=== PATIENT | male | born 1960 | race Hispanic/Latino ===

== ENCOUNTER 2022-12-18 09:32 | Inpatient (IN) | payer MEDICARE ==
[~2022-12-18] VITALS: Ht 172.7 cm; Wt 102.1 kg
[2022-12-18] MEDS ORDERED: Vancomycin IV 1 GM in SODIUM CHLORIDE 0.9% 250ML 250 ML IV ONE (11:30)
[2022-12-18] MEDS ORDERED: Vancomycin IV 1 GM VIAL ONE (11:37)
[2022-12-18] MEDS ORDERED: SODIUM CHLORIDE 0.9% 250ML 250 ML ONE (11:37)
[2022-12-18] MEDS ORDERED: CARVEDILOL12.5 MG PO (16:08)
[2022-12-18] MEDS ORDERED: DOCUSATE SODIU100 MG PO (16:08)
[2022-12-18] MEDS ORDERED: PERCOCET 10-321 EACH PO (16:08)
[2022-12-18] MEDS ORDERED: LOSARTAN POTAS100 MG PO (16:08)
[2022-12-18] MEDS ORDERED: BUSPIRONE HCL10 MG PO (16:08)
[2022-12-18] MEDS ORDERED: NYSTATIN-TRIAMC15 GM TOP (16:08)
[2022-12-18] MEDS ORDERED: AMITRIPTYLINE H50 MG PO (16:08)
[2022-12-18] MEDS ORDERED: ASPIRIN81 MG PO (16:08)
[2022-12-18] MEDS ORDERED: GLYBURIDE5 MG PO (16:08)
[2022-12-18] MEDS ORDERED: METFORMIN HCL850 MG PO (16:08)
[2022-12-18] MEDS ORDERED: HYDROCHLOROTHIA25 MG PO (16:08)
[2022-12-18] MEDS ORDERED: NITROGLYCERIN0.4 MG SL (16:08)
[2022-12-18] MEDS ORDERED: ATORVASTATIN CA20 MG PO (16:08)
[2022-12-18 16:34] VITALS: BP 139/73; PULSE 68; RESP 18; TEMP 97.2; O2SAT 100
[2022-12-18 16:38] VITALS: BP 152/81; PULSE 77; RESP 18; TEMP 98.4; O2SAT 98
[2022-12-18 16:46] VITALS: BP 152/81; PULSE 77; RESP 18; TEMP 98.4; O2SAT 98
[2022-12-18] MEDS ORDERED: NON-FORMULARY MEDICATION (Oxycodone Hcl/Acetaminophen (Percocet 10-325 Mg Tablet) 1 TAB) PO PRN (17:00)
[2022-12-18] MEDS ORDERED: NITROGLYCERIN 0.4 MG SUBL SL PRN (17:00)
[2022-12-18] MEDS ORDERED: DOCUSATE SODIUM 100 MG CAP PO PRN (17:00)
[2022-12-18] MEDS ORDERED: ENOXAPARIN SOD INJ 40 MG/0.4 ML SYR SC SCH (17:00)
[2022-12-18] MEDS ORDERED: DEXTROSE 50% SYRINGE 50 ML IV PRN (17:00)
[2022-12-18] MEDS ORDERED: NYSTATIN/TRIAMCINOLONE 15 GM CR TOP PRN (17:00)
[2022-12-18] MEDS: SODIUM CHLORIDE 0.9% 1000ML 1,000 ML IV SCH ×2 (17:51→19:30)
[2022-12-18] MEDS: LACTOBACILLUS ACIDOPHILUS CAPSULE PO SCH (17:51)
[2022-12-18] MEDS: CARVEDILOL 12.5 MG TAB PO SCH (17:52)
[2022-12-18] MEDS: HYDROCODONE/APAP 10MG-325MG TAB PO SCH ×2 (17:52→23:03)
[2022-12-18] MEDS: NICOTINE 21 MG/EA PATCH TOP SCH (17:53)
[2022-12-18] MEDS: ENOXAPARIN SOD INJ 40 MG/0.4 ML SYR SC SCH (17:53)
[2022-12-18] MEDS: GLYBURIDE 5 MG TAB PO SCH (18:38)
[2022-12-18 20:00] VITALS: BP 137/83; PULSE 86; RESP 18; TEMP 98.7; O2SAT 100
[2022-12-18 20:05] VITALS: BP 137/83; PULSE 86; RESP 18; TEMP 98.7; O2SAT 100
[2022-12-18] MEDS: AMITRIPTYLINE HCL 25 MG TAB PO SCH (20:54)
[2022-12-18] MEDS: ATORVASTATIN 20 MG TAB PO SCH (20:54)
[2022-12-18] MEDS: LOSARTAN POTASSIUM 100 MG TAB PO SCH (20:55)
[2022-12-18] MEDS: INSULIN LISPRO 100 UNIT/1 ML 3ML VIAL SQ SCH (20:59)
[2022-12-19 00:39] VITALS: BP 119/69; PULSE 81; RESP 20; TEMP 98.5; O2SAT 98
[2022-12-19] MEDS: SODIUM CHLORIDE 0.9% 1000ML 1,000 ML IV SCH ×2 (03:50→11:25)
[2022-12-19 04:50] VITALS: BP 102/57; PULSE 58; TEMP 97.6
[2022-12-19] MEDS: HYDROCODONE/APAP 10MG-325MG TAB PO SCH ×3 (05:19→17:38)
[2022-12-19 06:46] LABS: BASOPHILS # (AUTO) 0.1 (0.0-0.1); BASOPHILS % 0.7 % (0.0-1.0); EOSINOPHILS # (AUTO) 0.3 (0.0-0.4); EOSINOPHILS % 4.9 % (0.0-6.0); HEMATOCRIT 38.8 % (38.2-49.6); HEMOGLOBIN 13.3 g/dL (14.0-18.0); LYMPHOCYTES # (AUTO) 2.3 (1.0-3.2); LYMPHOCYTES % 33.4 % (18.0-39.1); MEAN CORPUSCULAR HEMOGLOBIN 31.2 pg (28-32); MEAN CORPUSCULAR HGB CONC 34.3 g/dL (31-35); MEAN CORPUSCULAR VOLUME 91.1 fL (81-99); MONOCYTES # (AUTO) 0.5 (0.2-0.8); NEUTROPHILS # (AUTO) 3.8 (2.1-6.9); NEUTROPHILS % 53.9 % (38.7-80.0); PLATELET COUNT 133 x10e3/uL (140-360); RED BLOOD COUNT 4.26 x10e6/uL (4.3-5.7); RED CELL DISTRIBUTION WIDTH 12.4 % (11.7-14.4)
[2022-12-19 07:17] LABS: ALBUMIN 3.3 g/dL (3.5-5.0); ALBUMIN/GLOBULIN RATIO 1.1 (0.8-2.0); ANION GAP 10.7 mmol/L (8-16); CALCIUM 8.6 mg/dL (8.4-10.2); CREATININE, SERUM 0.86 mg/dL (0.72-1.25); POTASSIUM 3.7 mmol/L (3.5-5.1)
[2022-12-19 08:19] VITALS: BP 133/86; PULSE 61; RESP 20; TEMP 97.9; O2SAT 100
[2022-12-19] MEDS: ERGOCALCIFEROL 50,000 UNIT CAP PO SCH (09:00)
[2022-12-19] MEDS: NICOTINE 21 MG/EA PATCH TOP SCH (09:33)
[2022-12-19] MEDS: HYDROCHLOROTHIAZIDE 25 MG TAB PO SCH (09:34)
[2022-12-19] MEDS: METFORMIN HCL 850 MG TAB PO SCH (09:34)
[2022-12-19] MEDS: BUSPIRONE HCL 10 MG TABLET PO SCH (09:34)
[2022-12-19] MEDS: LACTOBACILLUS ACIDOPHILUS CAPSULE PO SCH ×2 (09:34→17:36)
[2022-12-19] MEDS: ASPIRIN 81 MG CHEW TAB PO SCH (09:35)
[2022-12-19] MEDS: CARVEDILOL 12.5 MG TAB PO SCH ×2 (09:35→17:37)
[2022-12-19] MEDS: INSULIN LISPRO 100 UNIT/1 ML 3ML VIAL SQ SCH ×4 (09:56→21:00)
[2022-12-19] MEDS: GLYBURIDE 5 MG TAB PO SCH ×2 (10:59→17:36)
[2022-12-19] MEDS: CEFTRIAXONE 2 GM in SODIUM CHLORIDE 0.9% 100 ML IV SCH (13:37)
[2022-12-19] MEDS: Vancomycin IV 1 GM in SODIUM CHLORIDE 0.9% 250ML 250 ML IV SCH (13:39)
[2022-12-19 15:40] VITALS: BP 124/84; PULSE 68; RESP 20; TEMP 97.6; O2SAT 100
[2022-12-19] MEDS: ENOXAPARIN SOD INJ 40 MG/0.4 ML SYR SC SCH (17:36)
[2022-12-19 20:00] VITALS: BP 134/80; PULSE 71; RESP 17; TEMP 97.6; O2SAT 100
[2022-12-19] MEDS: AMITRIPTYLINE HCL 25 MG TAB PO SCH (21:42)
[2022-12-19] MEDS: ATORVASTATIN 20 MG TAB PO SCH (21:42)
[2022-12-19] MEDS: LOSARTAN POTASSIUM 100 MG TAB PO SCH (21:43)
[2022-12-19] MEDS: HYDROCODONE/APAP 10MG-325MG TAB PO PRN (21:45)
[2022-12-20] VITALS (8 sets, daily range): BP systolic 118–139; BP diastolic 80–94; PULSE 68–80; RESP 16–19; TEMP 97.5–98.4; O2SAT 100
[2022-12-20] MEDS: HYDROCODONE/APAP 10MG-325MG TAB PO PRN ×5 (02:42→21:54)
[2022-12-20] MEDS: SODIUM CHLORIDE 0.9% 1000ML 1,000 ML IV SCH ×4 (02:43→21:27)
[2022-12-20] MEDS: Vancomycin IV 1 GM in SODIUM CHLORIDE 0.9% 250ML 250 ML IV SCH ×2 (02:44→13:30)
[2022-12-20] MEDS: INSULIN LISPRO 100 UNIT/1 ML 3ML VIAL SQ SCH ×4 (07:30→21:34)
[2022-12-20] MEDS: GLYBURIDE 5 MG TAB PO SCH ×2 (09:04→17:55)
[2022-12-20] MEDS: BUSPIRONE HCL 10 MG TABLET PO SCH (09:04)
[2022-12-20] MEDS: HYDROCHLOROTHIAZIDE 25 MG TAB PO SCH (09:05)
[2022-12-20] MEDS: ASPIRIN 81 MG CHEW TAB PO SCH (09:05)
[2022-12-20] MEDS: LACTOBACILLUS ACIDOPHILUS CAPSULE PO SCH ×2 (09:05→17:55)
[2022-12-20] MEDS: METFORMIN HCL 850 MG TAB PO SCH (09:05)
[2022-12-20] MEDS: CEFTRIAXONE 2 GM in SODIUM CHLORIDE 0.9% 100 ML IV SCH (09:06)
[2022-12-20] MEDS: CARVEDILOL 12.5 MG TAB PO SCH ×2 (09:06→17:56)
[2022-12-20] MEDS: NICOTINE 21 MG/EA PATCH TOP SCH (09:07)
[2022-12-20] MEDS: ENOXAPARIN SOD INJ 40 MG/0.4 ML SYR SC SCH (17:56)
[2022-12-20] MEDS: MUPIROCIN 2% OINT 22 GM TUBE TOP SCH (17:57)
[2022-12-20] MEDS ORDERED: POVIDONE IODINE 10% 120 ML BTL EXT PRN (21:00)
[2022-12-20] MEDS: LOSARTAN POTASSIUM 100 MG TAB PO SCH (21:28)
[2022-12-20] MEDS: ATORVASTATIN 20 MG TAB PO SCH (21:28)
[2022-12-20] MEDS: AMITRIPTYLINE HCL 25 MG TAB PO SCH (21:28)
[2022-12-21] VITALS (9 sets, daily range): BP systolic 126–159; BP diastolic 75–94; PULSE 59–81; RESP 17–21; TEMP 97.7–98.6; O2SAT 99–100
[2022-12-21] MEDS: Vancomycin IV 1 GM in SODIUM CHLORIDE 0.9% 250ML 250 ML IV SCH ×2 (02:16→13:32)
[2022-12-21] MEDS: HYDROCODONE/APAP 10MG-325MG TAB PO PRN ×4 (02:17→17:05)
[2022-12-21] MEDS: SODIUM CHLORIDE 0.9% 1000ML 1,000 ML IV SCH (05:39)
[2022-12-21 07:26] LABS: BASOPHILS % 1.1 % (0.0-1.0); EOSINOPHILS # (AUTO) 0.1 (0.0-0.4); HEMATOCRIT 21.9 % (38.2-49.6); HEMOGLOBIN 8.1 g/dL (14.0-18.0); LYMPHOCYTES # (AUTO) 1.5 (1.0-3.2); LYMPHOCYTES % 41.4 % (18.0-39.1); MONOCYTES # (AUTO) 0.2 (0.2-0.8); MONOCYTES % 6.3 % (4.4-11.3); NEUTROPHILS # (AUTO) 1.7 (2.1-6.9); NEUTROPHILS % 48.9 % (38.7-80.0); PLATELET COUNT 97 x10e3/uL (140-360); RED BLOOD COUNT 1.84 x10e6/uL (4.3-5.7); RED CELL DISTRIBUTION WIDTH 12.2 % (11.7-14.4)
[2022-12-21 07:44] LABS: ALBUMIN 3.7 g/dL (3.5-5.0); ALBUMIN/GLOBULIN RATIO 1.7 (0.8-2.0); ANION GAP 11.6 mmol/L (8-16); CALCIUM 8.8 mg/dL (8.4-10.2); CREATININE, SERUM 1.49 mg/dL (0.72-1.25); POTASSIUM 4.6 mmol/L (3.5-5.1)
[2022-12-21] MEDS: INSULIN LISPRO 100 UNIT/1 ML 3ML VIAL SQ SCH ×4 (08:00→21:19)
[2022-12-21] MEDS: GLYBURIDE 5 MG TAB PO SCH ×2 (08:30→17:06)
[2022-12-21] MEDS: METFORMIN HCL 850 MG TAB PO SCH (08:30)
[2022-12-21 09:07] LABS: FERRITIN 130.24 ng/mL (21.81-274.66)
[2022-12-21] MEDS: CEFTRIAXONE 2 GM in SODIUM CHLORIDE 0.9% 100 ML IV SCH (09:39)
[2022-12-21] MEDS: HYDROCHLOROTHIAZIDE 25 MG TAB PO SCH (09:40)
[2022-12-21] MEDS: BUSPIRONE HCL 10 MG TABLET PO SCH (09:40)
[2022-12-21] MEDS: LACTOBACILLUS ACIDOPHILUS CAPSULE PO SCH ×2 (09:40→17:06)
[2022-12-21] MEDS: ASPIRIN 81 MG CHEW TAB PO SCH (09:40)
[2022-12-21] MEDS: CARVEDILOL 12.5 MG TAB PO SCH ×2 (09:41→17:06)
[2022-12-21] MEDS: NICOTINE 21 MG/EA PATCH TOP SCH (09:42)
[2022-12-21] MEDS: MUPIROCIN 2% OINT 22 GM TUBE TOP SCH (09:43)
[2022-12-21 09:56] LABS: PLATELET ESTIMATE SLIGHTLY DECREASED; PLATELET MORPHOLOGY COMMENT NORMAL; RBC MORPHOLOGY COMMENT NORMAL
[2022-12-21] MEDS: ENOXAPARIN SOD INJ 40 MG/0.4 ML SYR SC SCH (17:06)
[2022-12-21] MEDS: ATORVASTATIN 20 MG TAB PO SCH (21:11)
[2022-12-21] MEDS: AMITRIPTYLINE HCL 25 MG TAB PO SCH (21:11)
[2022-12-21] MEDS: LOSARTAN POTASSIUM 100 MG TAB PO SCH (21:12)
[2022-12-21] MEDS: Morphine 4mg INJECTION 4 MG/ML INJ IV PRN (21:13)
[2022-12-22] VITALS (13 sets, daily range): BP systolic 140–161; BP diastolic 85–97; PULSE 65–87; RESP 12–20; TEMP 97.8–98.8; O2SAT 99–100
[2022-12-22] MEDS: Morphine 4mg INJECTION 4 MG/ML INJ IV PRN ×4 (02:46→20:08)
[2022-12-22] MEDS: Vancomycin IV 1 GM in SODIUM CHLORIDE 0.9% 250ML 250 ML IV SCH ×2 (02:49→16:16)
[2022-12-22 06:27] LABS: ANION GAP 13.8 mmol/L (8-16); CALCIUM 9.1 mg/dL (8.4-10.2); CREATININE, SERUM 0.83 mg/dL (0.72-1.25); POTASSIUM 3.8 mmol/L (3.5-5.1)
[2022-12-22 06:51] LABS: CHOL/HDL RATIO 3.3 (3.9-4.7)
[2022-12-22 06:52] LABS: BASOPHILS % 0.5 % (0.0-1.0); EOSINOPHILS # (AUTO) 0.3 (0.0-0.4); LYMPHOCYTES # (AUTO) 1.9 (1.0-3.2); LYMPHOCYTES % 28.9 % (18.0-39.1); MEAN CORPUSCULAR HEMOGLOBIN 31.3 pg (28-32); MEAN CORPUSCULAR HGB CONC 34.6 g/dL (31-35); MONOCYTES # (AUTO) 0.5 (0.2-0.8); MONOCYTES % 7.4 % (4.4-11.3); NEUTROPHILS # (AUTO) 3.8 (2.1-6.9); NEUTROPHILS % 58.9 % (38.7-80.0); PLATELET COUNT 129 x10e3/uL (140-360); RED CELL DISTRIBUTION WIDTH 12.3 % (11.7-14.4)
[2022-12-22 06:54] LABS: HEMOGLOBIN 13.5 g/dL (14.0-18.0); MEAN CORPUSCULAR VOLUME 90.5 fL (81-99); RED BLOOD COUNT 4.31 x10e6/uL (4.3-5.7)
[2022-12-22] MEDS: INSULIN LISPRO 100 UNIT/1 ML 3ML VIAL SQ SCH ×4 (07:30→20:13)
[2022-12-22] MEDS: LACTOBACILLUS ACIDOPHILUS CAPSULE PO SCH ×2 (07:37→16:25)
[2022-12-22] MEDS: GLYBURIDE 5 MG TAB PO SCH ×2 (07:37→16:26)
[2022-12-22] MEDS: METFORMIN HCL 850 MG TAB PO SCH (07:37)
[2022-12-22] MEDS: ASPIRIN 81 MG CHEW TAB PO SCH (07:39)
[2022-12-22] MEDS: BUSPIRONE HCL 10 MG TABLET PO SCH (07:39)
[2022-12-22] MEDS: HYDROCHLOROTHIAZIDE 25 MG TAB PO SCH (09:00)
[2022-12-22] MEDS: CARVEDILOL 12.5 MG TAB PO SCH ×2 (09:00→16:25)
[2022-12-22] MEDS: CEFTRIAXONE 2 GM in SODIUM CHLORIDE 0.9% 100 ML IV SCH (09:19)
[2022-12-22] MEDS: MUPIROCIN 2% OINT 22 GM TUBE TOP SCH (09:19)
[2022-12-22] MEDS: NICOTINE 21 MG/EA PATCH TOP SCH (09:19)
[2022-12-22] MEDS ORDERED: NITROGLYCERIN/D5W 200 MCG/ML 250 ML ONE (10:07)
[2022-12-22] MEDS ORDERED: HEPARIN SOD/SOD CHLORIDE 2,000 ML ONE (10:07)
[2022-12-22] MEDS ORDERED: HEPARIN SOD (PORCINE) 1000 UNIT/ML 30ML ONE (10:07)
[2022-12-22] MEDS ORDERED: LIDOCAINE HCL 2% LOCAL 20 ML VIAL ONE (10:07)
[2022-12-22] MEDS ORDERED: SODIUM CHLORIDE 0.9% 1000ML 2,000 ML ONE (10:07)
[2022-12-22] MEDS ORDERED: IOPAMIDOL 370 MG/ML 100 ML INFUS..BTL INJ ONE (10:07)
[2022-12-22] MEDS ORDERED: MIDAZOLAM HCL 2 MG/2 ML VIAL ONE ×2 (10:08→11:05)
[2022-12-22] MEDS ORDERED: FENTANYL CITRATE/PF 100MCG/2 ML INJ ONE (10:08)
[2022-12-22] MEDS ORDERED: VERAPAMIL HCL 2.5 MG/ML 2 ML VIAL ONE (10:08)
[2022-12-22] MEDS ORDERED: SODIUM CHLORIDE 0.9% 250ML 250 ML ONE (10:54)
[2022-12-22] MEDS ORDERED: Vancomycin IV 1 GM VIAL ONE (10:54)
[2022-12-22] MEDS ORDERED: CLOPIDOGREL BISULFATE 75 MG TAB ONE (11:29)
[2022-12-22] MEDS ORDERED: ASPIRIN 325 MG TAB ONE (11:30)
[2022-12-22] MEDS: ENOXAPARIN SOD INJ 40 MG/0.4 ML SYR SC SCH (16:35)
[2022-12-22] MEDS: AMITRIPTYLINE HCL 25 MG TAB PO SCH (20:09)
[2022-12-22] MEDS: ATORVASTATIN 20 MG TAB PO SCH (20:09)
[2022-12-22] MEDS: LOSARTAN POTASSIUM 100 MG TAB PO SCH (20:13)
[2022-12-23] VITALS (8 sets, daily range): BP systolic 109–132; BP diastolic 63–90; PULSE 53–85; RESP 17–20; TEMP 97.9–98.9; O2SAT 100
[2022-12-23] MEDS: Morphine 4mg INJECTION 4 MG/ML INJ IV PRN ×2 (00:36→22:32)
[2022-12-23] MEDS: Vancomycin IV 1 GM in SODIUM CHLORIDE 0.9% 250ML 250 ML IV SCH ×2 (02:34→13:02)
[2022-12-23] MEDS: INSULIN LISPRO 100 UNIT/1 ML 3ML VIAL SQ SCH ×4 (07:30→22:34)
[2022-12-23] MEDS: HYDROCODONE/APAP 10MG-325MG TAB PO PRN ×4 (07:44→21:03)
[2022-12-23] MEDS: GLYBURIDE 5 MG TAB PO SCH ×2 (08:48→16:41)
[2022-12-23] MEDS: METFORMIN HCL 850 MG TAB PO SCH (08:48)
[2022-12-23] MEDS: LACTOBACILLUS ACIDOPHILUS CAPSULE PO SCH ×2 (08:48→16:41)
[2022-12-23] MEDS: ASPIRIN 81 MG CHEW TAB PO SCH (08:48)
[2022-12-23] MEDS: HYDROCHLOROTHIAZIDE 25 MG TAB PO SCH (08:49)
[2022-12-23] MEDS: CARVEDILOL 12.5 MG TAB PO SCH ×2 (08:49→16:42)
[2022-12-23] MEDS: BUSPIRONE HCL 10 MG TABLET PO SCH (08:49)
[2022-12-23] MEDS: NICOTINE 21 MG/EA PATCH TOP SCH (08:50)
[2022-12-23] MEDS: CEFTRIAXONE 2 GM in SODIUM CHLORIDE 0.9% 100 ML IV SCH (08:50)
[2022-12-23] MEDS: ENOXAPARIN SOD INJ 40 MG/0.4 ML SYR SC SCH (16:41)
[2022-12-23] MEDS: AMITRIPTYLINE HCL 25 MG TAB PO SCH (21:02)
[2022-12-23] MEDS: LOSARTAN POTASSIUM 100 MG TAB PO SCH (21:02)
[2022-12-23] MEDS: ATORVASTATIN 20 MG TAB PO SCH (21:03)
[2022-12-23] MEDS: MUPIROCIN 2% OINT 22 GM TUBE TOP SCH (22:33)
[2022-12-24] VITALS (8 sets, daily range): BP systolic 110–139; BP diastolic 63–84; PULSE 65–74; RESP 17–20; TEMP 97.4–98.2; O2SAT 97–100
[2022-12-24] MEDS: Vancomycin IV 1 GM in SODIUM CHLORIDE 0.9% 250ML 250 ML IV SCH ×2 (02:08→15:00)
[2022-12-24] MEDS: Morphine 4mg INJECTION 4 MG/ML INJ IV PRN ×4 (02:44→22:02)
[2022-12-24] MEDS: HYDROCODONE/APAP 10MG-325MG TAB PO PRN ×2 (05:03→09:22)
[2022-12-24] MEDS: INSULIN LISPRO 100 UNIT/1 ML 3ML VIAL SQ SCH ×4 (07:30→20:38)
[2022-12-24] MEDS: GLYBURIDE 5 MG TAB PO SCH ×2 (08:51→16:37)
[2022-12-24] MEDS: METFORMIN HCL 850 MG TAB PO SCH (08:51)
[2022-12-24] MEDS: HYDROCHLOROTHIAZIDE 25 MG TAB PO SCH (09:22)
[2022-12-24] MEDS: LACTOBACILLUS ACIDOPHILUS CAPSULE PO SCH ×2 (09:22→16:37)
[2022-12-24] MEDS: ASPIRIN 81 MG CHEW TAB PO SCH (09:22)
[2022-12-24] MEDS: CEFTRIAXONE 2 GM in SODIUM CHLORIDE 0.9% 100 ML IV SCH (09:23)
[2022-12-24] MEDS: CARVEDILOL 12.5 MG TAB PO SCH ×2 (09:23→16:38)
[2022-12-24] MEDS: NICOTINE 21 MG/EA PATCH TOP SCH (09:24)
[2022-12-24] MEDS: BUSPIRONE HCL 10 MG TABLET PO SCH (09:24)
[2022-12-24] MEDS: ENOXAPARIN SOD INJ 40 MG/0.4 ML SYR SC SCH (16:38)
[2022-12-24] MEDS: LOSARTAN POTASSIUM 100 MG TAB PO SCH (21:42)
[2022-12-24] MEDS: ATORVASTATIN 20 MG TAB PO SCH (21:42)
[2022-12-24] MEDS: MUPIROCIN 2% OINT 22 GM TUBE TOP SCH (21:42)
[2022-12-24] MEDS: AMITRIPTYLINE HCL 25 MG TAB PO SCH (21:42)
[2022-12-25] VITALS (8 sets, daily range): BP systolic 113–135; BP diastolic 74–85; PULSE 68–77; RESP 18–20; TEMP 97.8–98.3; O2SAT 98–100
[2022-12-25] MEDS: Vancomycin IV 1 GM in SODIUM CHLORIDE 0.9% 250ML 250 ML IV SCH ×2 (03:00→13:02)
[2022-12-25] MEDS: Morphine 4mg INJECTION 4 MG/ML INJ IV PRN ×5 (03:30→22:58)
[2022-12-25] MEDS: INSULIN LISPRO 100 UNIT/1 ML 3ML VIAL SQ SCH ×4 (07:30→21:58)
[2022-12-25] MEDS: METFORMIN HCL 850 MG TAB PO SCH (08:00)
[2022-12-25] MEDS: GLYBURIDE 5 MG TAB PO SCH ×2 (08:00→17:14)
[2022-12-25] MEDS ORDERED: BUPIVACAINE HCL 0.5% INJ 30 ML VIAL INJ ONE (08:07)
[2022-12-25] MEDS ORDERED: DEXAMETHASONE SOD PHOS INJ 4 MG/ML SDV ONE (08:07)
[2022-12-25] MEDS ORDERED: NEOSTIGMINE 1 MG/ML 10ML VIAL ONE (08:07)
[2022-12-25] MEDS: LACTOBACILLUS ACIDOPHILUS CAPSULE PO SCH ×2 (08:12→17:14)
[2022-12-25] MEDS ORDERED: ACETAMINOPHEN 1000 MG/100 ML 100 ML IV ONE (08:27)
[2022-12-25] MEDS ORDERED: CEFTRIAXONE 1 GM VIAL ONE (08:30)
[2022-12-25] MEDS: CEFTRIAXONE 2 GM in SODIUM CHLORIDE 0.9% 100 ML IV SCH (09:00)
[2022-12-25] MEDS: BUSPIRONE HCL 10 MG TABLET PO SCH (09:00)
[2022-12-25] MEDS: NICOTINE 21 MG/EA PATCH TOP SCH (09:00)
[2022-12-25] MEDS: ASPIRIN 81 MG CHEW TAB PO SCH (10:56)
[2022-12-25] MEDS: CARVEDILOL 12.5 MG TAB PO SCH ×2 (10:57→17:15)
[2022-12-25] MEDS: HYDROCHLOROTHIAZIDE 25 MG TAB PO SCH (10:58)
[2022-12-25] MEDS ORDERED: LIDOCAINE HCL 2% LOCAL INJ 5 ML SDV VIAL INJ ONE (13:16)
[2022-12-25] MEDS ORDERED: POVIDONE IODINE 0.05% 0.05 % ML PO ONE (13:16)
[2022-12-25] MEDS ORDERED: SEVOFLURANE INHAL SOLN 250 ML PEN BTL ONE (13:16)
[2022-12-25] MEDS ORDERED: ONDANSETRON HCL INJ 2MG/ML 2ML 2 MG/ML VIAL ONE (13:16)
[2022-12-25] MEDS ORDERED: ETOMIDATE 2 MG/ML 10 ML INJ IV ONE (13:16)
[2022-12-25] MEDS ORDERED: FENTANYL CITRATE/PF 100MCG/2 ML INJ ONE (14:06)
[2022-12-25] MEDS: MUPIROCIN 2% OINT 22 GM TUBE TOP SCH (21:00)
[2022-12-25] MEDS: ATORVASTATIN 20 MG TAB PO SCH (21:53)
[2022-12-25] MEDS: LOSARTAN POTASSIUM 100 MG TAB PO SCH (21:53)
[2022-12-25] MEDS: AMITRIPTYLINE HCL 25 MG TAB PO SCH (21:53)
[2022-12-26] VITALS (7 sets, daily range): BP systolic 128–150; BP diastolic 78–91; PULSE 72–94; RESP 14–18; TEMP 98–98.6; O2SAT 99–100
[2022-12-26] MEDS: Vancomycin IV 1 GM in SODIUM CHLORIDE 0.9% 250ML 250 ML IV SCH ×3 (03:18→13:01)
[2022-12-26] MEDS: Morphine 4mg INJECTION 4 MG/ML INJ IV PRN ×5 (03:18→21:28)
[2022-12-26] MEDS: GLYBURIDE 5 MG TAB PO SCH ×2 (08:22→17:46)
[2022-12-26] MEDS: NICOTINE 21 MG/EA PATCH TOP SCH (08:22)
[2022-12-26] MEDS: CARVEDILOL 12.5 MG TAB PO SCH ×2 (08:22→17:47)
[2022-12-26] MEDS: LACTOBACILLUS ACIDOPHILUS CAPSULE PO SCH ×2 (08:23→17:47)
[2022-12-26] MEDS: METFORMIN HCL 850 MG TAB PO SCH (08:23)
[2022-12-26] MEDS: ASPIRIN 81 MG CHEW TAB PO SCH (08:23)
[2022-12-26] MEDS: BUSPIRONE HCL 10 MG TABLET PO SCH (08:23)
[2022-12-26] MEDS: HYDROCHLOROTHIAZIDE 25 MG TAB PO SCH (08:23)
[2022-12-26] MEDS: CEFTRIAXONE 2 GM in SODIUM CHLORIDE 0.9% 100 ML IV SCH (08:24)
[2022-12-26] MEDS: ERGOCALCIFEROL 50,000 UNIT CAP PO SCH (08:26)
[2022-12-26] MEDS: INSULIN LISPRO 100 UNIT/1 ML 3ML VIAL SQ SCH ×4 (08:36→21:00)
[2022-12-26] MEDS: ATORVASTATIN 20 MG TAB PO SCH (21:26)
[2022-12-26] MEDS: AMITRIPTYLINE HCL 25 MG TAB PO SCH (21:26)
[2022-12-26] MEDS: MUPIROCIN 2% OINT 22 GM TUBE TOP SCH (21:26)
[2022-12-26] MEDS: LOSARTAN POTASSIUM 100 MG TAB PO SCH (21:27)
[2022-12-27 00:40] VITALS: BP 129/74; PULSE 67; RESP 18; TEMP 97.7; O2SAT 99
[2022-12-27] MEDS: Vancomycin IV 1 GM in SODIUM CHLORIDE 0.9% 250ML 250 ML IV SCH (01:58)
[2022-12-27] MEDS: Morphine 4mg INJECTION 4 MG/ML INJ IV PRN ×3 (02:06→11:59)
[2022-12-27 04:34] VITALS: BP 117/83; PULSE 77; RESP 17; TEMP 97.5; O2SAT 100
[2022-12-27] MEDS: METFORMIN HCL 850 MG TAB PO SCH (07:49)
[2022-12-27] MEDS: BUSPIRONE HCL 10 MG TABLET PO SCH (07:49)
[2022-12-27] MEDS: ASPIRIN 81 MG CHEW TAB PO SCH (07:49)
[2022-12-27] MEDS: GLYBURIDE 5 MG TAB PO SCH (07:50)
[2022-12-27] MEDS: NICOTINE 21 MG/EA PATCH TOP SCH (07:50)
[2022-12-27] MEDS: CARVEDILOL 12.5 MG TAB PO SCH (07:50)
[2022-12-27] MEDS: LACTOBACILLUS ACIDOPHILUS CAPSULE PO SCH (07:50)
[2022-12-27] MEDS: HYDROCHLOROTHIAZIDE 25 MG TAB PO SCH (07:50)
[2022-12-27] MEDS: CEFTRIAXONE 2 GM in SODIUM CHLORIDE 0.9% 100 ML IV SCH (07:51)
[2022-12-27] MEDS: INSULIN LISPRO 100 UNIT/1 ML 3ML VIAL SQ SCH ×2 (08:03→11:30)
[2022-12-27 08:09] VITALS: BP 142/84; PULSE 70; RESP 18; TEMP 97.8; O2SAT 100
[2022-12-27 08:54] VITALS: BP 142/84; PULSE 70; RESP 18; TEMP 97.8; O2SAT 100
[2022-12-27 11:51] VITALS: BP 128/62; PULSE 80; RESP 20; TEMP 97.9; O2SAT 99
== END 2022-12-27 14:02 | disposition home or self-care (01) | DRG 617 ==
LOC: FSED 09:36 → ERHOLD 11:24 → MED/SURG2 13:56
PROVIDERS: ADMIT Family Medicine; ATTEND Family Medicine
PROC: 02HV33Z Insertion of Infusion Device into Superior Vena Cava, Percutaneous Approach (ICD-10-PCS; 2022-12-19)
PROC: 04CP3ZZ Extirpation of Matter from Right Anterior Tibial Artery, Percutaneous Approach (ICD-10-PCS; 2022-12-22)
PROC: 047P3ZZ Dilation of Right Anterior Tibial Artery, Percutaneous Approach (ICD-10-PCS; 2022-12-22)
PROC: B410ZZZ Fluoroscopy of Abdominal Aorta (ICD-10-PCS; 2022-12-22)
PROC: B41GZZZ Fluoroscopy of Left Lower Extremity Arteries (ICD-10-PCS; 2022-12-22)
PROC: B41FZZZ Fluoroscopy of Right Lower Extremity Arteries (ICD-10-PCS; 2022-12-22)
PROC: 0Y6T0Z0 Detachment at Right 3rd Toe, Complete, Open Approach (ICD-10-PCS; 2022-12-25)
PROC: 0Y6R0Z0 Detachment at Right 2nd Toe, Complete, Open Approach (ICD-10-PCS; principal; 2022-12-25 08:34)
DX: E11.69 Type 2 diabetes mellitus with other specified complication (principal); I42.9 Cardiomyopathy, unspecified; L03.115 Cellulitis of right lower limb; M86.9 Osteomyelitis, unspecified; E11.621 Type 2 diabetes mellitus with foot ulcer; L97.529 Non-pressure chronic ulcer of other part of left foot with unspecified severity; N17.9 Acute kidney failure, unspecified; E11.51 Type 2 diabetes mellitus with diabetic peripheral angiopathy without gangrene; I10 Essential (primary) hypertension; G89.29 Other chronic pain; Z96.653 Presence of artificial knee joint, bilateral; M54.50 Low back pain, unspecified; E11.42 Type 2 diabetes mellitus with diabetic polyneuropathy; B35.1 Tinea unguium; B35.3 Tinea pedis; F17.210 Nicotine dependence, cigarettes, uncomplicated; E78.5 Hyperlipidemia, unspecified; D64.9 Anemia, unspecified; B95.2 Enterococcus as the cause of diseases classified elsewhere; Z95.810 Presence of automatic (implantable) cardiac defibrillator; Z20.822 Contact with and (suspected) exposure to COVID-19; Z89.411 Acquired absence of right great toe; Z88.0 Allergy status to penicillin; Z79.82 Long term (current) use of aspirin; Z79.84 Long term (current) use of oral hypoglycemic drugs
CPT/HCPCS: 36415; 36569; 37228; 37229; 71045; 75625; 75716; 76000; 80048; 80053; 80061; 80202; 82728; 82948; 83540; 83605; 84466; 85025; 87040; 87071; 87075; 87186; 87205; 88304; 88305; 88311; 93925; 93970; 96372; 99152; 99153; 99252; 99284; C1724; C1725; C1769; C1887; C1894; J0696; J1100; J1644; J1650; J2001; J2250; J2270; J2405; J2710; J7030; J7050; Q9967